=== PATIENT | male | born 1960 | race Caucasian/White ===

== ENCOUNTER 2017-07-12 08:18 | Emergency (ER) | payer BC ==
[~2017-07-12] VITALS: Ht 195.6 cm; Wt 127.1 kg
[2017-07-12] MEDS ORDERED: LIDOCAINE 1%, 20ML ONE (09:23)
[2017-07-12] MEDS ORDERED: LIDOCAINE 1%-EPI 1:100K, 20ML SQ ONE (09:30)
[2017-07-12] MEDS ORDERED: AMPICILLIN/SULBACTAM 3 GM in SODIUM CHLORIDE 0.9% 100 ML IVPB ONE (09:30)
[2017-07-12] MEDS ORDERED: SODIUM CHLORIDE 0.9% 1,000ML IVBOLUS ONE (09:30)
[2017-07-12] MEDS ORDERED: SODIUM CHLORIDE FLUSH 10ML SYR IVF ONE (09:30)
[2017-07-12 09:39] LABS: HEMATOCRIT 44.9 % (39.2-51.8); HEMOGLOBIN 15.3 g/dL (13.7-18.0); WHITE BLOOD COUNT 6.6 x10^3/uL (3.4-10)
[2017-07-12 09:51] LABS: BLOOD UREA NITROGEN 16 mg/dL (7-18)
[2017-07-12 11:02] VITALS: BP 152/91
== END 2017-07-12 11:04 | disposition home or self-care (01) ==
LOC: ED 10:58
DX: L02.411 Cutaneous abscess of right axilla (principal); L03.313 Cellulitis of chest wall
CPT/HCPCS: 10060; 36415; 80048; 82040; 83605; 85025; 96365; 99284; J0295; J7030